=== PATIENT | female | born 1940 | race Caucasian/White ===

== ENCOUNTER 2023-02-22 14:06 | Outpatient (CLI) | payer MEDICARE | END 2023-02-22 14:07 | disposition home or self-care (01) | LOC: CSHMAMMO 14:06 | PROVIDERS: ATTEND Family Medicine | DX: N63.20 Unspecified lump in the left breast, unspecified quadrant (principal); N60.02 Solitary cyst of left breast | CPT/HCPCS: 76642; 77066; G0279 ==